=== PATIENT | female | born 1955 | race Caucasian/White ===

== ENCOUNTER 2018-01-17 11:55 | Observation (INO) | payer MEDICARE, SELFPAY ==
[2018-01-04 13:10] VITALS: BP 143/89; PULSE 80; RESP 16; TEMP 36.8; O2SAT 94; BMI 41.8
--- NOTE | 2018-01-13 16:12 | CASEMGMT ---
NICOL CLARK called and spoke with patient regarding discharge needs after upcoming surgery. Patient states that she has a walker, shower chair, and hand held shower and denies need for further DME. Patient states that she is setup with [facility] in [place] for outpatient therapy and that her will be providing transportation. NICOL CLARK will follow up with patient after surgery and will assist with discharge needs.
[2018-01-17] VITALS (13 sets, daily range): BP systolic 114–149; BP diastolic 66–96; PULSE 81–110; RESP 14–18; TEMP 36.4–37.1; O2SAT 72–97; BMI 41.8
[2018-01-17] MEDS: Celecoxib 200 MG Capsule 400 MG PO (10:44)
[2018-01-17] MEDS: oxyCODONE HCl Cr 10 MG Tablet PO (10:44)
[2018-01-17] MEDS: Acetaminophen 500 MG Tablet 1000 MG PO ×3 (10:44→20:56)
[2018-01-17] MEDS: Lactated Ringers 1,000 ML 125 ML IV ×2 (11:50→23:04)
[2018-01-17] MEDS: Clindamycin 600 MG/50 ML BAG 100 MG IV (12:18)
--- NOTE | 2018-01-17 14:03 | PCM.IMDPSTOP ---
Immediate Post-Op Note Date of Procedure: 01/17/18 Primary Surgeon/Physician: Dennis Box weight and test bar clerk: Zhang Sommers Pre-Operative Diagnosis: OA bilateral knees Post-Operative Diagnosis: same Surgery/Procedure Performed:: 1. Left TKR. 2. Intra-articular injection corticosteroid right knee Description of Surgical Findings:: see note Estimated Blood Loss: 50 cc Specimen's removed: bone Type of Anesthesia:: General ASA Class: ASA3 Severe Disease - Admit VTE Documentation VTE Present on Admission: No VTE Mechan Device Prophylaxis: SCD's, Thigh High ALESSANDRO Hose VTE Pharm Prophylaxis ordered?: Yes
[2018-01-17] MEDS: Betamethasone/Betamethasone 30 MG/5 ML Vial (14:11)
[2018-01-17 15:19] LABS: Hematocrit 36.3 % (37-47); Hemoglobin 12.3 g/dl (12.0-15.0); Mean Corp Hgb Conc 33.9 g/gl (32-36); Mean Corpuscular Hgb 33.7 pg (27.0-32.0); Mean Corpuscular Volume 99.5 fL (81-99); Platelet Count 181 K/mm3 (150-450); RBC Distribution Width CV 13.8 % (11.6-14.6); RBC Distribution Width SD 48.4 fl (35.1-43.9); Red Blood Count 3.65 M/mm3 (4.2-5.4); Scan Indicated on CBC? Y/N NO; White Blood Count 10.3 K/mm3 (4.4-11.0)
[2018-01-17 15:38] LABS: Anion Gap 11 (5-15); BUN 17 mg/dL (7-18); BUN/Creat Ratio 15.7 RATIO (10-20); Calcium,Total 8.5 mg/dL (8.5-10.1); Chloride 105 mmol/L (98-107); Creatinine, Serum 1.08 mg/dL (0.55-1.02); EST Glomerular Filtration Rate 54 mL/min (>60); Est Glom Filt Rate - Afr Amer 66 mL/min (>60); Estimated Creatinine Clearance 42.17 ml/min; Glucose 168 mg/dL (74-106); Sodium Level 141 mmol/L (136-145)
[2018-01-17] MEDS: Aspirin 325 MG Tablet PO (17:05)
[2018-01-17] MEDS: Scopolamine 1mg/72hr Patch 1 PATCH TD (17:37)
[2018-01-17] MEDS: MELATONIN 3 MG TABLET PO (20:56)
[2018-01-17] MEDS: DiphenhydrAMINE 25 MG Capsule PO (20:56)
[2018-01-17] MEDS: Atorvastatin Calcium 20 MG Tablet PO (20:56)
--- NOTE | 2018-01-17 23:06 | NUR.TO.PHY ---
Patient asleep with home CPAP. O2 into low 70s. Call to resp to add O2 attachment. Patient does not normally bleed in O2 on CPAP @ home.
[2018-01-18 02:13] VITALS: BP 107/63; PULSE 81; RESP 18; TEMP 36.8; O2SAT 96
[2018-01-18 06:06] LABS: Hematocrit 32.1 % (37-47); Hemoglobin 10.8 g/dl (12.0-15.0); Mean Corp Hgb Conc 33.6 g/gl (32-36); Mean Corpuscular Hgb 33.4 pg (27.0-32.0); Mean Corpuscular Volume 99.4 fL (81-99); Mean Platelet Vol. 12.4 fl (6.2-12.0); Platelet Count 109 K/mm3 (150-450); RBC Distribution Width CV 13.6 % (11.6-14.6); RBC Distribution Width SD 48.1 fl (35.1-43.9); Red Blood Count 3.23 M/mm3 (4.2-5.4); White Blood Count 9.3 K/mm3 (4.4-11.0)
[2018-01-18 06:20] LABS: Scan Indicated on CBC? Y/N NO
[2018-01-18 06:37] LABS: Anion Gap 9 (5-15); BUN 22 mg/dL (7-18); BUN/Creat Ratio 21.6 RATIO (10-20); Calcium,Total 8.4 mg/dL (8.5-10.1); Chloride 104 mmol/L (98-107); Creatinine, Serum 1.02 mg/dL (0.55-1.02); EST Glomerular Filtration Rate 58 mL/min (>60); Est Glom Filt Rate - Afr Amer 70 mL/min (>60); Estimated Creatinine Clearance 44.65 ml/min; Glucose 145 mg/dL (74-106); Potassium 4.4 mmol/L (3.5-5.1); Sodium Level 139 mmol/L (136-145)
[2018-01-18] MEDS: Acetaminophen 500 MG Tablet 1000 MG PO ×2 (06:39→13:51)
[2018-01-18 07:42] VITALS: O2SAT 91
--- NOTE | 2018-01-18 07:55 | PCM.PN.ORT ---
Subjective: Patient doing well. Reports knee hurts less than before surgery. - Physical Exam General: Alert, Oriented x3, No apparent distress HEENT: Atraumatic Oral: Moist Mucosa Extremities: No clubbing, No cyanosis, Capillary Refill Less than 3 Seconds, No Calf Tenderness Skin: Incision - stable Neurological: Neuro grossly intact Vital Signs Temp Pulse Resp BP Pulse Ox 98.2 F 81 18 107/63 91 01/18/18 02:13 01/18/18 02:13 01/18/18 02:13 01/18/18 02:13 01/18/18 07:42 Oxygen Flow Rate (L/min) 5 Oxygen Delivery Method Room Air Weight: 229 lb Body Mass Index (BMI) 41.8 Intake and Output for Last 24 Hours 01/16/18 01/17/18 01/18/18 23:59 23:59 23:59 Intake Total 2399 / 2399 881 / 881 Balance 2399 / 2399 881 / 881 Laboratory Tests Past 24 Hrs 01/17/18 01/17/18 01/18/18 15:10 15:10 05:25 WBC 10.3 9.3 RBC 3.65 L 3.23 L Hgb 12.3 10.8 L Hct 36.3 L 32.1 L MCV 99.5 H 99.4 H MCH 33.7 H 33.4 H MCHC 33.9 33.6 RDW 13.8 13.6 RDW Differential 48.4 H 48.1 H Plt Count 181 109 L MPV 12.0 12.4 H Sodium 141 Potassium 4.0 Chloride 105 Carbon Dioxide 25.0 Anion Gap 11 BUN 17 Creatinine 1.08 H Estim Creat Clear Calc 42.17 Est GFR (MDRD) Af Amer 66 Est GFR (MDRD) Non-Af 54 L BUN/Creatinine Ratio 15.7 Glucose 168 H Calcium 8.5 01/18/18 05:25 WBC RBC Hgb Hct MCV MCH MCHC RDW RDW Differential Plt Count MPV Sodium 139 Potassium 4.4 Chloride 104 Carbon Dioxide 26.0 Anion Gap 9 BUN 22 H Creatinine 1.02 Estim Creat Clear Calc 44.65 Est GFR (MDRD) Af Amer 70 Est GFR (MDRD) Non-Af 58 L BUN/Creatinine Ratio 21.6 H Glucose 145 H Calcium 8.4 L Medical Necessity - Tobacco Use Smoking Status: Never smoker Assessment/Plan s/p Left TKR PT today, d/c tomorrow
[2018-01-18 08:15] VITALS: BP 111/57; PULSE 81; RESP 18; TEMP 37.1; O2SAT 93
[2018-01-18] MEDS: Aspirin 325 MG Tablet PO ×2 (08:21→17:53)
[2018-01-18] MEDS: Ferrous Sulfate 325 MG Tablet PO (08:21)
[2018-01-18] MEDS: Cyanocobalamin 500 MCG Tablet PO (08:21)
[2018-01-18] MEDS: HYDROCHLOROTHIAZIDE 12.5 MG CAPSULE PO (08:22)
[2018-01-18] MEDS: Lisinopril 20 MG Tablet PO (08:23)
[2018-01-18] MEDS: Pantoprazole Sodium 40 MG Tablet PO (08:23)
[2018-01-18 08:30] VITALS: PULSE 76
[2018-01-18] MEDS: Naproxen 250 MG Tablet PO (10:36)
[2018-01-18] MEDS: oxyCODONE 5 MG Tablet PO ×2 (10:38→17:57)
[2018-01-18 14:23] VITALS: BP 101/69; PULSE 78; RESP 18; TEMP 37.1; O2SAT 96
--- NOTE | 2018-01-18 15:30 | CASEMGMT ---
NICOL CLARK Face to Face with patient for initial transition planning/care coordination assessment. RN EDUARDO introduced self and role at [facility]. Patient lying in bed, alert and oriented. Patient willing to participate in assessment and is able to answer all questions appropriately. Care providers, pharmacy, and demographics verified. Patient lives in 2 story house with bed and bath on 1st floor with her . Patient states she has a walker and shower chair at home. Patient wishes to discharge home and is setup with [facility] for outpatient therapy. Patient states she has no further needs or concerns at this time. CM to follow for discharge planning needs that may arise. Disposition Plan: Patient to discharge home with outpatient therapy, family support, and follow-up plans in place.
--- NOTE | 2018-01-18 17:13 | PCM.DC.TKR ---
Discharge Diet: No Restrictions Discharge Activity: May Not Drive, May Shower, Use Walker May shower in (days): 4 Ice area for (Minutes): 20 - each hour while awake. Weight Bearing Status: Weight bearing as tolerated Elevate: Operative Extremity Additional Activity Instructions:: Wear elastic stockings for 2 weeks after your surgery. Call your doctor if your incision/area has: Continuous Slow Oozing, Sudden Increased Bleeding, Increased Pain/ Swelling, Increased Redness, Foul Smelling Discharge Call your doctor if you observe: Fever of 101 or Higher, Coldness, Increased Pain - in extremity, Numbness or Tingling, Change in Color, Calf discomfort, Uncontrolled pain Change Dressing in (Days):: 0 - and daily as needed. Remove Dressing in (days):: 8 Cleanse incision/area with: Soap & Water Allergies/Adverse Reactions: Allergies Penicillins [PCN] Allergy (Verified 01/04/18 13:01) Diarrhea pregabalin [From Lyrica] Allergy (Verified 01/04/18 13:01) Swelling Medications to take at Discharge Bacillus Coagulans [Digestive Advantage] 1 each PO DAILY 01/04/18 Cyanocobalamin [Vitamin B12] 500 mcg PO DAILY@0800 01/04/18 DiphenhydrAMINE [Benadryl] 25 mg PO QHS 01/04/18 Ferrous Fumarate [Ferretts] 325 mg PO DAILY 01/04/18 L.acidoph,Paracasei, B.lactis [Probiotic] 1 each PO DAILY 01/04/18 Lisinopril/Hydrochlorothiazide [Zestoretic 20-12.5 mg Tablet] 1 each PO DAILY 01/04/18 Melatonin 3 mg PO BID 01/04/18 Mv-Min/FA/Vit K/Lycop/Lut/Zeax [Ocuvite Eye Plus Multi Tablet] 1 each PO DAILY 01/04/18 [place]-3 Fatty Acids/Fish Oil [[place] 3 1,000 mg Softgel] 2 each PO DAILY 01/04/18 Omeprazole 40 mg PO DAILY 01/04/18 Simvastatin [Zocor] 40 mg PO QHS 01/04/18 Acetaminophen [Tylenol] 1,000 mg PO Q8 #90 tab 01/18/18 Aspirin 325 mg PO BIDCM #60 tab 01/18/18 Oxycodone [Oxyir] 5 - 10 mg PO Q4H PRN PRN 7 Days #84 tab 01/18/18 The following prescriptions were given: Oxycodone [Oxyir] 5 - 10 mg PO Q4H PRN PRN 7 Days #84 tab PRN Reason: Mod-Severe Pain (-03/30) Acetaminophen [Tylenol] 1,000 mg PO Q8 #90 tab Aspirin 325 mg PO BIDCM #60 tab Primary Care Physician: Letitia Harmon MD [Primary Care Provider] - Test Results: Test results from this visit will be discussed in further detail at your follow-up appointment, if applicable. Please Follow Up With: Dennis Box, DO When: see pink sheet
[2018-01-18 17:54] VITALS: BP 100/57; PULSE 84; RESP 18; TEMP 37.2; O2SAT 94
== END 2018-01-18 18:09 | disposition home or self-care (01) ==
LOC: MS3 12:45
PROVIDERS: Admitting Provider Orthopaedic Surgery; Family Provider Family Medicine; PCP Family Medicine; Visit Provider Orthopaedic Surgery
PROC: (CPT 27447; principal; 2018-01-17 12:05)
DX: M17.0 Bilateral primary osteoarthritis of knee (principal); Z79.899 Other long term (current) drug therapy; I10 Essential (primary) hypertension; K58.9 Irritable bowel syndrome, unspecified; E78.00 Pure hypercholesterolemia, unspecified; K21.9 Gastro-esophageal reflux disease without esophagitis; F41.9 Anxiety disorder, unspecified; F32.9 Major depressive disorder, single episode, unspecified
CPT/HCPCS: 01400; 27447; 36415; 80048; 85027; 87077; 87081; 93005; 96361; 96365; 96366; 97162; 97166; 97530; 99218; C1776; J7120; G0378; G0379; J0702; J2405

== ENCOUNTER → 2018-09-21 15:42 | Outpatient (CLI) | payer MEDICARE, SELFPAY | PROVIDERS: Referring Provider Otolaryngology Otolaryngology/Facial Plastic Surgery; Visit Provider Otolaryngology Otolaryngology/Facial Plastic Surgery | DX: J32.9 Chronic sinusitis, unspecified (principal) | CPT/HCPCS: 87070; 87205 ==

== ENCOUNTER → 2019-05-11 12:44 | Outpatient (CLI) | payer MEDICARE, SELFPAY ==
[2019-04-03 10:41] VITALS: BMI 40.0
--- NOTE | 2019-05-15 07:39 | PFT ---
INTRODUCTION: The patient is a 63-year-old female that presents for pulmonary function studies secondary to a diagnosis of dyspnea on exertion. Respiratory therapy reports good patient effort. Bronchodilators were used during testing. INTERPRETATION: Forced expiration spirometry demonstrates no evidence of a large airways obstructive ventilatory defect. There was a significant response to aerosolized bronchodilators, based upon change noted in FEV1. Spirograms are of good quality and plateau normally. Body plethysmography was performed and reveals a total lung capacity at the lower limits of normal. The remainder of the lung volumes are within normal limits. Diffusing capacity by single breath CO is mildly reduced. IMPRESSION: Subtle evidence of small airways disease with significant bronchodilator response. Diffusing capacity is mildly reduced.
== END ==
PROVIDERS: Family Provider Family Medicine; PCP Family Medicine; Referring Provider Internal Medicine Critical Care Medicine; Visit Provider Internal Medicine Critical Care Medicine
DX: R06.09 Other forms of dyspnea (principal)
CPT/HCPCS: 94060; 94726; 94729

== ENCOUNTER → 2022-01-28 | Outpatient (CLI) | payer MEDICARE, SELFPAY ==
[2022-01-28 15:01] LABS: Hematocrit 37.9 % (37-47); Hemoglobin 12.6 g/dL (12.0-15.0); Mean Corp Hgb Conc 33.2 g/dL (32-36); Mean Corpuscular Hgb 32.9 pg (27.0-32.0); Mean Platelet Vol. 12.9 fl (6.2-12.0); Platelet Count 152 K/mm3 (150-450); RBC Distribution Width CV 14.7 % (11.6-14.6); RBC Distribution Width SD 53.5 fl (35.1-43.9); Red Blood Count 3.83 M/mm3 (4.2-5.4)
[2022-01-28 15:14] LABS: International Normalized Ratio 1.2; Prothrombin Time (Protime)PT. 14.4 SECONDS (11.7-14.9)
[2022-01-28 15:15] LABS: Partial Thromboplast Time 33.4 Seconds (24.1-36.2)
[2022-01-28 15:27] LABS: ALB/GLOB Ratio 0.8 RATIO (0.9-2.4); AST(SGOT) 26 U/L (15-37); Alanine Aminotransfer ALT/SGPT 23 U/L (13-56); Albumin, Serum 3.2 g/dL (3.2-5.0); Alkaline Phosphatase 109 U/L (45-117); Anion Gap 5 (5-15); BUN 15 mg/dL (7-18); Calcium,Total 9.5 mg/dL (8.5-10.1); Chloride 106 mmol/L (98-107); Creatinine, Serum 0.88 mg/dL (0.55-1.02); EST Glomerular Filtration Rate 68 mL/min (>60); Est Glom Filt Rate - Afr Amer 82 mL/min (>60); Ferritin 170 ng/mL (8-252); Glucose 123 mg/dL (74-106); Iron 102 ug/dL (50-170); Potassium 3.4 mmol/L (3.5-5.1); Protein, Total 7.2 g/dL (6.4-8.2); Sodium Level 142 mmol/L (136-145)
[2022-01-28 15:56] LABS: Hepatitis B Surface Antigen Non-Reactive (Nonreactive); Hepatitis C Antibody Non-Reactive (Nonreactive)
[2022-01-30 10:53] LABS: AFP, Tumor Marker 7.1 ng/mL (0.0-9.2)
== END | disposition home or self-care (01) ==
LOC: MTLAB 11:37
PROVIDERS: PCP Family Medicine; Referring Provider Internal Medicine Gastroenterology; Visit Provider Internal Medicine Gastroenterology
DX: K74.60 Unspecified cirrhosis of liver (principal)
CPT/HCPCS: 36415; 80053; 82105; 82728; 83540; 85027; 85610; 85730; 86803; 87340

== ENCOUNTER → 2022-02-10 | Outpatient (CLI) | payer MEDICARE, SELFPAY ==
--- NOTE | 2022-02-10 11:30 | MRI_ITS ---
STUDY: MRI ABDOMEN WITH AND WITHOUT CONTRAST REASON FOR EXAM: Female, 66 years old. Cirrhosis, fatty liver TECHNIQUE: Standardized fat and water weighted pulse sequences were obtained in all 3 orthogonal planes post contrast administration. IV 17ml Dotarem was administered for the contrast portion of the examination. COMPARISON: None. FINDINGS: The visualized lung bases are unremarkable. The visualized portions of the heart are within normal limits. There is a diffuse contour abnormality of the liver consistent with cirrhotic changes. Normal gallbladder and extrahepatic biliary system. Normal spleen. Normal pancreas. Normal bilateral adrenal glands. Normal right kidney. Normal left kidney. Normal visualized stomach. Normal small intestine. Normal colon. There is diffuse atherosclerotic calcification of the abdominal aorta with elongation and tortuosity. Normal inferior vena cava. Normal retroperitoneum. Normal abdominal wall. There are diffuse degenerative changes of the visualized lumbar spine. MRI/MRI Abd WITH and W/O Contrast IMPRESSION: Cirrhotic liver with no suspicious arterially enhancing mass. Electronically Signed: Camron Rivas MD at 17:54 EDT ,
== END | disposition home or self-care (01) ==
LOC: MRI 10:57
PROVIDERS: PCP Family Medicine; Visit Provider Internal Medicine Gastroenterology
DX: K74.60 Unspecified cirrhosis of liver (principal)
CPT/HCPCS: 74183; A9575

== ENCOUNTER 2022-05-19 08:28 | Outpatient (CLI) | payer MEDICARE, SELFPAY ==
--- NOTE | 2022-05-19 08:35 | RAD_ITS ---
STUDY: X-RAY - ESOPHAGUS (BARIUM SWALLOW) WITH FLUOROSCOPY REASON FOR EXAM: Female, 66 years old. DYSPHAGIA TECHNIQUE: 17 view(s) of the esophagus were obtained following swallowing of barium. FLUOROSCOPY TIME (if supplied): (29 seconds) minutes/seconds COMPARISON: None. FINDINGS: There is no demonstrated esophageal foreign body. There is no demonstrated stricture or mucosal abnormality. Moderate sized hiatal hernia with gastroesophageal reflux. The patient ingested a 12 mm tablet of barium without any difficulty. There is atherosclerotic tortuosity of the aortic arch and descending thoracic aorta. Normal visualized pulmonary parenchyma. Normal visualized osseous structures of the thorax. RAD/Esophagus Dual Contrast IMPRESSION: Moderate sized hiatal hernia with gastroesophageal reflux. Electronically Signed: Jaya Herbert MD at 10:59 EST ,
== END 2022-05-19 23:59 | disposition home or self-care (01) ==
PROVIDERS: PCP Family Medicine; Referring Provider Otolaryngology; Visit Provider Otolaryngology
DX: R13.10 Dysphagia, unspecified (principal); K44.9 Diaphragmatic hernia without obstruction or gangrene; K21.9 Gastro-esophageal reflux disease without esophagitis
CPT/HCPCS: 74221

== ENCOUNTER → 2023-08-10 | Outpatient (CLI) | payer MEDICARE, SELFPAY | END | disposition home or self-care (01) | LOC: SL 13:51 | PROVIDERS: PCP Family Medicine; Referring Provider Nurse Practitioner Acute Care; Visit Provider Nurse Practitioner Acute Care | DX: G47.33 Obstructive sleep apnea (adult) (pediatric) (principal) | CPT/HCPCS: 98960; G0463 ==

== ENCOUNTER → 2024-04-19 | Outpatient (CLI) | payer MEDICARE, SELFPAY ==
[2024-04-19 17:34] LABS: Hematocrit 38.4 % (37-47); Hemoglobin 13.1 g/dL (12.0-15.0); Mean Corp Hgb Conc 34.1 g/dL (32-36); Mean Corpuscular Hgb 34.7 pg (27.0-32.0); Mean Corpuscular Volume 101.9 fL (81-99); Mean Platelet Vol. 12.7 fl (6.2-12.0); Platelet Count 122 K/mm3 (150-450); RBC Distribution Width CV 13.6 % (11.6-14.6); RBC Distribution Width SD 51.2 fl (35.1-43.9); Red Blood Count 3.77 M/mm3 (4.2-5.4); White Blood Count 3.9 K/mm3 (4.4-11.0)
[2024-04-19 17:39] LABS: International Normalized Ratio 1.2; Prothrombin Time (Protime)PT. 15.2 SECONDS (11.7-14.9)
[2024-04-19 18:03] LABS: ALB/GLOB Ratio 0.9 RATIO (0.9-2.4); AST(SGOT) 36 U/L (15-37); Alanine Aminotransfer ALT/SGPT 24 U/L (13-56); Albumin, Serum 3.2 g/dL (3.2-5.0); Alkaline Phosphatase 99 U/L (45-117); Anion Gap 6 (5-15); BUN 14 mg/dL (7-18); BUN/Creat Ratio 17.3 RATIO (10-20); Calcium,Total 9.2 mg/dL (8.5-10.1); Chloride 109 mmol/L (98-107); Creatinine, Serum 0.81 mg/dL (0.55-1.02); EST Glomerular Filtration Rate 75 mL/min (>60); Est Glom Filt Rate - Afr Amer 90 mL/min (>60); Globulin 3.6 g/dL (2.2-4.2); Glucose 103 mg/dL (74-106); Iron 94 ug/dL (50-170); Potassium 3.6 mmol/L (3.5-5.1); Protein, Total 6.8 g/dL (6.4-8.2); Sodium Level 142 mmol/L (136-145)
== END | disposition home or self-care (01) ==
LOC: MTLAB 14:31
PROVIDERS: PCP Family Medicine; Referring Provider Internal Medicine Gastroenterology; Visit Provider Internal Medicine Gastroenterology
DX: K74.60 Unspecified cirrhosis of liver (principal)
CPT/HCPCS: 36415; 80053; 82105; 83540; 85027; 85610; 85730

== ENCOUNTER 2025-01-23 09:26 | Emergency (ER) | payer MEDICARE, SELFPAY ==
[2025-01-23 09:27] VITALS: BP 178/98; PULSE 70; RESP 20; TEMP 35.9; O2SAT 98
--- NOTE | 2025-01-23 09:35 | CT_ITS ---
PROCEDURE: ABDOMEN/PELVIS WITHOUT CONT 01/23/2025 REASON FOR EXAM: LEFT FLANK PAIN TECHNIQUE: ABDOMEN/PELVIS WITHOUT CONT Noncontrast technique limits evaluation of the abdominal and pelvic viscera. Coronal and Sagittal reconstruction series were provided. One or more dose reduction techniques were used (e.g., Automated exposure control, adjustment of the mA and/or kV according to patient size, use of iterative reconstruction technique). RADIATION DOSE SUMMARY: CTDlvol: 18.75 mGy DLP: 927.29 mGycm COMPARISON: Prior MRI of the abdomen dated February 10, 2022. FINDINGS: Lung bases: Lung bases are clear. Coronary artery calcification. Small hiatal hernia. Liver: Mild hepatomegaly. Gallbladder: Surgically absent. Spleen: Normal size. Pancreas: Normal size. No surrounding inflammation. Adrenals: Adrenal glands are unremarkable. Kidneys: No urolithiasis. No hydronephrosis. Bladder: Unremarkable Reproductive Organs: Prior hysterectomy. Adnexal regions are unremarkable. Bowel: Colonic diverticulosis without diverticulitis. Appendix: The appendix is not identified. There is no inflammatory process identified in the right lower quadrant to suggest appendicitis. Lymph nodes: Unremarkable. Vasculature: Mild diffuse atherosclerotic calcifications are noted. Peritoneum / Retroperitoneum: Findings suggestive of prior anterior abdominal wall hernia repair. Bones: Degenerative changes of the spine. CT/Abdomen/Pelvis without Cont IMPRESSION: Hepatomegaly. Status post cholecystectomy. No evidence of ureteral obstruction. Reading Location: [id number]
--- NOTE | 2025-01-23 09:36 | EDS_ITS ---
HPI HPI - Female History of Present Illness Chief Complaint: Flank Pain Detail of Chief Complaint: Left flank pain Informant: patient Narrative Narrative: Patient presents to the emergency department complaint of left flank pain that started last evening. She rates her pain a 10 out of 10. Denies nausea or vomiting. Denies urinary symptoms of dysuria urgency or frequency. She denies hematuria. No history of kidney stones. She has history of hypertension as well as history of IBS. She has had a cholecystectomy and a hysterectomy. [facility] Medical History (Updated 01/23/25 @ 12:[address] Kimberli Chu, DO) history of lymphadenectomy Hypertension History of spinal tap Fibromyalgia Allergies Hypercholesterolemia GERD (gastroesophageal reflux disease) Depression IBS (irritable bowel syndrome) VANE (obstructive sleep apnea) Home Medications ?Medication ?Instructions ?Recorded ?Last Taken ?Type cyanocobalamin (vitamin B-12) 500 500 mcg PO DAILY@080 0 SUPPLEMENT 01/04/18 Unknown History mcg tablet ferrous fumarate 325 mg (106 mg 325 mg PO DAILY SUPPLE MENT 01/04/18 Unknown History iron) tablet celbrgel-kyj-GM 200 mcg-vit K 15 1 ea PO DAILY SUPPLEM ENT 01/04/18 Unknown History mcg-lycope 150 oyd-jkosyj-urnc tablet omega-3 fatty acids-fish oil 300 2 ea PO DAILY SUPPLEM ENT 01/04/18 Unknown History mg-1,000 mg capsule omeprazole 40 mg capsule,delayed 40 mg PO DAILY STOMAC H ACID 01/04/18 Unknown History release simvastatin 40 mg tablet 40 mg PO QHS CHOLESTEROL Unknown History metoprolol succinate 25 mg PO #90 tabs 04/03/19 Unknow n History tablet,extended release 24 hr alendronate 70 mg tablet 70 mg PO QWEEK 10/28/21 Unkn own History albuterol sulfate 90 mcg/actuation 2 puff inhalation Q 4H PRN 04/26/23 Unknown Rx aerosol inhaler (Ventolin HFA) shortness of breath or wheezing #18 grams hydrochlorothiazide 25 mg tablet mg PO DAILY 07/27/23 Unknown History levothyroxine 25 mcg tablet mcg PO DAILY 07/27/23 Unkn own History ranolazine 500 mg tablet,extended mg PO BID 07/27/23 U nknown History release,12 hr budesonide-formoterol HFA 80 2 puff inhalation BID #3 ea 08/16/24 Unknown Rx mcg-4.5 mcg/actuation aerosol inhaler (Symbicort) levocetirizine 5 mg tablet 5 mg PO QHS 01/15/25 Unknow n History hydrocodone-acetaminophen 5-325mg 1 tab PO Q4H PRN PRN Pain 2 days 01/23/25 Unknown Rx 5mg-325mg #10 TABLETS Allergy/AdvReac Type Severity Reaction Status Date / Time Penicillins (PCN) Allergy Diarrhea Verified 01/23/25 09:28 pregabalin (From Lyrica) Allergy Swelling Verified 01/23/25 09:28 Family History Father Cancer Mother Cancer Other COPD (chronic obstructive pulmonary disease) Surgical History History of left knee replacement H/O: hysterectomy H/O tubal ligation History of cholecystectomy Social History Smoking Status: Never smoker alcohol intake: never ROS ROS ED Review of Systems ROS Unobtainable: other Constitutional Constitutional ED: Reports lethargy; Denies chills, fever(s), sweats or weight loss Eyes Eyes: Denies blurry vision, change in vision or diplopia ENT ENT ED: Denies rhinorrhea or sore throat Cardiovascular Cardiovascular: Denies chest pain, orthopnea or racing heartbeat Respiratory/Chest Respiratory/Chest: Denies cough, dyspnea, dyspnea on exertion, orthopnea or sputum Gastrointestinal Gastrointestinal: Denies abdominal pain, diarrhea, nausea or vomiting Genitourinary Genitourinary ED: Denies dysuria, hematuria or urinary frequency Musculoskeletal Musculoskeletal: Reports back pain; Denies arthralgias, myalgias or neck pain Integumentary Denies abscess, Abrasions or rash Neurologic Neurologic: Denies headache(s) or weakness Psychiatric Psychiatric: Denies anxiety, depression or suicidal thoughts Endocrine Endocrinology: Denies polydipsia, polyphagia or polyuria Hematologic/Lymphatic Hematologic/Lymphatic: Denies easy bleeding, easy bruising or lymphadenopathy Allergic/Immunologic Allergic/Immunologic ED: Denies mouth swelling, tongue swelling or urticaria EXAM Physical Exam Const Vital Signs: 01/23/25 09:27 01/23/25 11:26 Temperature 96.7 F L Temperature Source Temporal Pulse Rate 70 86 Respiratory Rate 20 H 16 Blood Pressure 178/98 H 134/66 H Blood Pressure Mean 124 88 Pulse Ox 98 98 Oxygen Delivery Method Room Air Room Air Positive well nourished and well developed General Appearance ED: well developed and NAD HEENT Reports TM's clear and moist mucous membranes normocephalic and atraumatic; Negative for trauma or tenderness Tympanic Membrane ED: Yes TM's clear Eyes PERRL and EOMs intact bilaterally General Eye ED: Negative for pale conjunctiva or scleral icterus Neck no lymphadenopathy, supple and no JVD General: Negative for tenderness Chest Wall inspection of chest normal and palpation of chest normal Chest: Negative for tenderness Resp normal respiratory effort and clear to auscultation bilaterally Effort and Inspection: Negative for respiratory distress or pain with movement Auscultation: Negative for rhonchi, wheezes or diminished lung sounds Cardio regular rate, regular rhythm, S1 normal heart sound, S2 normal heart sound and n o murmurs Peripheral Pulses: pulses 2+ throughout GI normal to inspection, nondistended, normoactive bowel sounds, soft to palpation, non-distended and no masses GI Narrative: Large body habitus. Tenderness palpation over the left lower quadrant and suprapubic region. No pulsatile masses noted on exam. Positive CVA tenderness on the left. Back/Spine no CVA tenderness and no thoracic nor lumbar tenderness Back/Spine Narrative: No tenderness to palpation over the left lower thoracic and lumbar paraspinal musculature that seems to somewhat reproduce her pain. Negative straight leg raises. Deep tendon reflexes plus 2 out of 4 bilaterally at the patella and Achilles. Patient has normal sensation to light touch. Normal L5 extension bilaterally. There is no erythema or warmth noted to her back. Extremity normal to inspection General Extremety ED: Negative for edema General Extremity: Negative for edema Neuro oriented x3, CN's II-XII intact bilaterally, no sensory deficits noted and gait normal Sensorium / Orientation: awake, alert, oriented to person, oriented to place and oriented to time Motor Exam: strength 5/5 throughout and strength abnormal Psych mental status grossly normal Skin no rashes or lesions noted and no wounds MDM MDM MDM Narrative Medical decision making narrative: Patient presents with left-sided flank pain. In the differential would be kidney stone versus UTI versus diverticulitis or less likely AAA. IV line established. She was medicated with morphine as well as Zofran and Toradol. Will obtain labs as well as a CT scan of the abdomen pelvis to evaluate further. CBC with differential normal at 3.7 with hemoglobin 13.4 platelet count of 133. Chemistries unremarkable. Urinalysis unremarkable. Without signs of infection. I did perform a D-dimer which was normal at 0.31. CT scan of the abdomen pelvis was unremarkable. This point etiology of her back pain unclear although suspect at this point musculoskeletal etiology. Will write a prescription for a few [place] for pain. I did medicate her with morphine here as well as Zofran and Toradol and she had good pain relief with that. Lab Data Attestation: I reviewed the patient's lab results. Labs: Laboratory Results - last 24 hr 01/23/25 01/23/25 01/23/25 09:46 10:47 11:22 WBC 3.7 L RBC 3.94 L Hgb 13.4 Hct 39.5 MCV 100.3 H MCH 34.0 H MCHC 33.9 RDW Std Deviation 50.2 H RDW Coeff of Adal 13.5 Plt Count 133 L MPV 12.3 H Immature Gran % (Auto) 0.300 Neut % (Auto) 65.1 Lymph % (Auto) 21.1 [place] % (Auto) 10.8 H Eos % (Auto) 2.2 Baso % (Auto) 0.5 Absolute Neuts (auto) 2.4 Absolute Lymphs (auto) 0.78 L Nucleated RBC % 0 D-Dimer Quant (PE/DVT) Cancelled Sodium 139 Potassium 3.5 Chloride 103 Carbon Dioxide 23.7 Anion Gap 13 BUN 14 Creatinine 0.83 Estim Creat Clear Calc 65.83 Est GFR (MDRD) Non-Af 76 BUN/Creatinine Ratio 16.8 Glucose 133 H Calcium 9.2 Urine Color Yellow Urine Clarity Clear Urine pH 5.0 Ur Specific [place] 1.025 Urine Protein 30 H Urine Glucose (UA) Normal Urine Ketones Negative Urine Occult Blood 10 H Urine Nitrite Negative Urine Bilirubin Negative Urine Urobilinogen Normal Ur Leukocyte Esterase 25 H Urine RBC 0 SEEN Urine WBC 0 SEEN Ur Squamous Epith Cells 0 SEEN Urine Bacteria 0 SEEN Urine Mucus 0 SEEN 01/23/25 11:41 WBC RBC Hgb Hct MCV MCH MCHC RDW Std Deviation RDW Coeff of Adal Plt Count MPV Immature Gran % (Auto) Neut % (Auto) Lymph % (Auto) [place] % (Auto) Eos % (Auto) Baso % (Auto) Absolute Neuts (auto) Absolute Lymphs (auto) Nucleated RBC % D-Dimer Quant (PE/DVT) 0.31 Sodium Potassium Chloride Carbon Dioxide Anion Gap BUN Creatinine Estim Creat Clear Calc Est GFR (MDRD) Non-Af BUN/Creatinine Ratio Glucose Calcium Urine Color Urine Clarity Urine pH Ur Specific [place] Urine Protein Urine Glucose (UA) Urine Ketones Urine Occult Blood Urine Nitrite Urine Bilirubin Urine Urobilinogen Ur Leukocyte Esterase Urine RBC Urine WBC Ur Squamous Epith Cells Urine Bacteria Urine Mucus Radiography Diagnostic Testing: Clinical Impression(s) from Imaging Studies Abdomen/Pelvis CT 01/23/25 09:35 IMPRESSION: Hepatomegaly. Status post cholecystectomy. No evidence of ureteral obstruction. Reading Location: [id number] Discharge Plan Triage Chief Complaint: Flank Pain ED Provider: Kimberli Chu Dx/Rx/DC Orders Clinical Impression: Back pain Instructions: ED Flank Pain, Uncertain Cause, ED Back and Neck Pain, General Prescriptions: New hydrocodone-acetaminophen 5-325 mg tablet 1 tab PO Q4H PRN PRN (Reason: Pain) 2 Days Qty: 10 0RF No Action metoprolol succinate 25 mg tablet extended release 24 hr PO Qty: 90 Patient Comments: TAKE 1 TABLET BY MOUTH EVERY DAY alendronate 70 mg tablet 70 mg PO QWEEK albuterol sulfate [Ventolin HFA] 90 mcg/actuation HFA aerosol inhaler 2 puff INHALATION Q4H PRN (Reason: shortness of breath or wheezing) Qty: 18 6RF hydrochlorothiazide 25 mg tablet PO DAILY Patient Comments: TAKE 1 TABLET BY MOUTH EVERY DAY levothyroxine 25 mcg tablet PO DAILY Patient Comments: TAKE 1 TABLET BY MOUTH EVERY DAY ranolazine 500 mg tablet extended release 12 hr PO BID Patient Comments: TAKE 1 TABLET BY MOUTH TWICE A DAY levocetirizine 5 mg tablet 5 mg PO QHS omeprazole 40 MG capsule,delayed release(DR/EC) 40 mg PO DAILY simvastatin 40 MG tablet 40 mg PO QHS cyanocobalamin (vitamin B-12) 500 MCG tablet 500 mcg PO DAILY@0800 omega-3 fatty acids-fish oil 1 EACH capsule 2 ea PO DAILY ferrous fumarate 325 MG tablet 325 mg PO DAILY hl-ss-KD-vit G-emlan-pizt-zeax 1 EACH tablet 1 ea PO DAILY budesonide-formoterol [Symbicort] 80-4.5 mcg/actuation HFA aerosol inhaler 2 puff INHALATION BID Qty: 3 3RF Primary Care Provider: Letitia Herrera Referrals: Letitia Herrera DO [Primary Care Provider] - 3-5 Days Print Language: Colombian Disposition Disposition: Home, Self Care
[2025-01-23 09:48] VITALS: BMI 38.9
[2025-01-23] MEDS: 0.9% Normal Saline (1000mL) 1,000 ML 150 ML IV (09:49)
[2025-01-23 10:01] LABS: Hematocrit 39.5 % (37-47); Hemoglobin 13.4 g/dL (12.0-15.0); Immature Granulocytes Count 0.010 X10^3/uL (0.0-0.0); Mean Corp Hgb Conc 33.9 g/dL (32-36); Mean Corpuscular Volume 100.3 fL (81-99); Mean Platelet Vol. 12.3 fl (6.2-12.0); NRBC Flagged by Analyzer 0 % (0-5); Platelet Count 133 K/mm3 (150-450); RBC Distribution Width CV 13.5 % (11.6-14.6); RBC Distribution Width SD 50.2 fl (35.1-43.9); Red Blood Count 3.94 M/mm3 (4.2-5.4); White Blood Count 3.7 K/mm3 (4.4-11.0)
[2025-01-23 10:33] LABS: Anion Gap 13 (5-15); BUN 14 mg/dL (4-19); BUN/Creat Ratio 16.8 RATIO (10-20); Calcium,Total 9.2 mg/dL (7.6-11.0); Carbon Dioxide 23.7 mmol/L (21.0-32.0); Chloride 103 mmol/L (98-108); Estimated Creatinine Clearance 65.83 ml/min (50-250); Glucose 133 mg/dL (70-99); Potassium 3.5 mmol/L (3.3-5.1)
[2025-01-23 10:52] LABS: Mucous, Urine 0 SEEN /hpf (<or=2+); Red Blood Cells-Urine 0 SEEN /hpf (0-5); Squamous Epithelial Cells - UA 0 SEEN /hpf (5-10)
[2025-01-23 10:53] LABS: Color, Urine Yellow (Yellow); Glucose, Dipstick Normal (Normal); Ketone-Dipstick Negative (Negative); Leukocyte Esterase-Dipstick 25 /ul (Negative); Nitrite-Dipstick Negative (Negative); Occult Blood-Urine 10 /ul (Negative); Protein-Dipstick 30 mg/dl (Negative); Specific Gravity, Urine 1.025 (1.002-1.030); Urine Bilirubin Dipstick Negative (Negative)
[2025-01-23 11:26] VITALS: BP 134/66; PULSE 86; RESP 16; O2SAT 98
[2025-01-23 12:08] LABS: D-Dimer Quantitative (DVT/PE) 0.31 FEU/ug/m (0.27-0.49)
[2025-01-23 12:22] VITALS: BP 134/78; PULSE 64; RESP 18; TEMP 36.6; O2SAT 99
== END 2025-01-23 12:22 | disposition home or self-care (01) ==
PROVIDERS: Emergency Provider Emergency Medicine; PCP Family Medicine; Visit Provider Emergency Medicine
DX: R10.9 Unspecified abdominal pain (principal); Z90.710 Acquired absence of both cervix and uterus; I10 Essential (primary) hypertension; M54.9 Dorsalgia, unspecified; Z90.49 Acquired absence of other specified parts of digestive tract; E78.00 Pure hypercholesterolemia, unspecified; K21.9 Gastro-esophageal reflux disease without esophagitis; Z79.899 Other long term (current) drug therapy; Z96.652 Presence of left artificial knee joint; Z98.51 Tubal ligation status
CPT/HCPCS: 74176; 80048; 81001; 85025; 85379; 96361; 96374; 96375; 99283; A4216; J2405